=== PATIENT | male | born 1990 | race Caucasian/White ===

== ENCOUNTER 2020-03-29 22:10 | Emergency (ER) | payer OTHER ==
[~2020-03-29] VITALS: Ht 177.8 cm; Wt 82.1 kg
[~2020-03-29 22:10] MED LIST: MUCINEX1200 MG PO; ULTRACET PO
== END 2020-03-30 01:30 | disposition home or self-care (01) ==
LOC: ER 22:10
DX: B34.9 Viral infection, unspecified (principal); R07.0 Pain in throat

== ENCOUNTER 2021-11-19 20:30 | Emergency (ER) | payer OTHER ==
[~2021-11-19] VITALS: Ht 177.8 cm; Wt 94.3 kg
[2021-11-19] MEDS ORDERED: EC-NAPROSYN375 MG PO (23:53)
== END 2021-11-20 00:20 | disposition home or self-care (01) ==
LOC: ER 20:30
DX: R07.89 Other chest pain (principal); M94.0 Chondrocostal junction syndrome [Tietze]

== ENCOUNTER 2023-01-29 16:06 | Emergency (ER) | payer OTHER ==
[~2023-01-29] VITALS: Ht 180.3 cm; Wt 93.0 kg
[~2023-01-29 16:06] MED LIST changes: +EC-NAPROSYN375 MG PO
== END 2023-01-29 21:36 | disposition home or self-care (01) ==
LOC: ER 16:06
DX: R10.84 Generalized abdominal pain (principal)